=== PATIENT | male | born 1970 | race Caucasian/White ===

== ENCOUNTER → 2022-10-05 14:39 | Outpatient (BNVA) | payer OTHER, SELFPAY | PROVIDERS: Visit Provider Podiatrist Foot & Ankle Surgery | DX: M79.671 Pain in right foot (principal); M19.071 Primary osteoarthritis, right ankle and foot | CPT/HCPCS: 73600; 73630; 99203 ==

== ENCOUNTER 2022-12-02 13:00 | Outpatient (CLI) | payer OTHER, SELFPAY ==
--- NOTE | 2022-12-02 13:06 | MR_ITS ---
WS: [id number] MRI LUMBAR SPINE NONCONTRAST HISTORY: LUMBAR RADICULOPATHY COMPARISON: None available. TECHNIQUE: Sagittal and axial multisequence imaging is submitted. Normal lumbar alignment with no compression fractures or marrow edema. Mild disc space narrowing and desiccation at L5-S1. Conus terminates normally at L1. L1-L2: Normal. L2-L3: Mild annular disc bulging and mild facet arthritis. No stenosis. L3-L4: Mild annular disc bulging, mild ligamentum flavum and facet arthritis. There is mild disc encr oachment upon the traversing L4 nerve roots. Slightly greater on the RIGHT. Mild bilateral subarticul ar recess and foraminal stenosis. There is also a RIGHT foraminal disc protrusion with mild contact o n the exiting RIGHT L3 nerve root. L4-L5: Mild annular disc bulging, facet and ligamentum flavum hypertrophy. Disc contacts the subartic ular recesses and the traversing L5 nerve roots. Mild osteophytic ridging. Mild bilateral foraminal s tenosis. Moderate central and subarticular recess stenosis. L5-S1: Mild annular disc bulging with a central disc protrusion. Central protrusion contacts the S1 n erve roots, RIGHT greater than LEFT. Mild central, bilateral subarticular recess and foraminal stenos is. Retroperitoneal structures are negative. IMPRESSION: 1. L3-4: RIGHT foraminal disc protrusion with mild contact on the exiting RIGHT L3 nerve root. Annula r disc bulging is also contacting the traversing L4 nerve roots. Slightly greater on the RIGHT L4 ner ve root. 2. L4-5: Moderate central and bilateral subarticular recess stenosis and mild foraminal stenosis. The re is disc contacting the traversing L5 nerve roots. 3. L5-S1: Mild central, bilateral subarticular recess and foraminal stenosis.
== END 2022-12-02 13:01 | disposition home or self-care (01) ==
LOC: RAD 13:01
PROVIDERS: Visit Provider Nurse Practitioner
DX: M54.16 Radiculopathy, lumbar region (principal); M51.26 Other intervertebral disc displacement, lumbar region; M48.07 Spinal stenosis, lumbosacral region
CPT/HCPCS: 72148

== ENCOUNTER → 2022-12-27 10:18 | Outpatient (BNVA) | payer OTHER, SELFPAY | PROVIDERS: Visit Provider Specialist | DX: M25.512 Pain in left shoulder (principal); M25.579 Pain in unspecified ankle and joints of unspecified foot; M19.071 Primary osteoarthritis, right ankle and foot; M75.102 Unspecified rotator cuff tear or rupture of left shoulder, not specified as traumatic; M12.812 Other specific arthropathies, not elsewhere classified, left shoulder | CPT/HCPCS: 73030; 99204; 99213 ==

== ENCOUNTER 2023-01-27 09:10 | Outpatient (CLI) | payer OTHER, SELFPAY ==
--- NOTE | 2023-01-27 09:30 | MR_ITS ---
WS: [id number] MRI LEFT SHOULDER NONCONTRAST TECHNIQUE: Sagittal T2, coronal T1, T2 and proton density imaging. Axial gradient PDE imaging. CLINICAL INFORMATION: shoulder pain COMPARISON: None. FINDINGS: Moderate degenerative arthritis AC joint with edema. Moderate downsloping acromion with subacromial spurring. Impingement distal supraspinatus. Small amount of subacromial subdeltoid fluid. Tendinopath y distal supraspinatus with a small insertional tear. Chronic thinning of the supraspinatus. Tendinop athy infraspinatus which appears intact. Normal teres minor. Distal subscapularis appears intact. Biceps tendon appears intact within the bici pital groove. Normal intra-articular biceps tendon. Small subcoracoid effusion. Moderate degenerative narrowing at the glenohumeral articulation. Glenoid labrum appears grossly intact. IMPRESSION: 1. Moderate degenerative arthritis AC joint with fluid and edema. Subacromial and subdeltoid fluid. 2. Moderate downsloping of the acromion with subacromial spurring. Impingement distal supraspinatus with a distal insertional tear and tendinopathy. Chronic thinning. 3. Tendinopathy infraspinatus. 4. Somewhat diminutive biceps tendon intact within the bicipital groove. Intra-articular biceps tend on appears intact. 5. No other acute findings.
== END 2023-01-27 09:11 | disposition home or self-care (01) ==
LOC: RAD 09:10
PROVIDERS: Visit Provider Specialist
DX: M19.012 Primary osteoarthritis, left shoulder (principal); M75.102 Unspecified rotator cuff tear or rupture of left shoulder, not specified as traumatic; M75.82 Other shoulder lesions, left shoulder; M75.42 Impingement syndrome of left shoulder
CPT/HCPCS: 73221

== ENCOUNTER → 2023-02-21 09:22 | Outpatient (BNVA) | payer OTHER, SELFPAY | PROVIDERS: PCP Nurse Practitioner; Visit Provider Specialist | DX: M70.61 Trochanteric bursitis, right hip | CPT/HCPCS: 73502; 99214 ==

== ENCOUNTER → 2023-02-23 10:39 | Outpatient (BNVA) | payer OTHER, SELFPAY | PROVIDERS: PCP Nurse Practitioner; Visit Provider Specialist | DX: M75.102 Unspecified rotator cuff tear or rupture of left shoulder, not specified as traumatic (principal); M12.812 Other specific arthropathies, not elsewhere classified, left shoulder | CPT/HCPCS: 20610; 99214; J1100; J2795; J3301 ==

== ENCOUNTER → 2023-07-01 08:52 | Outpatient (BNVA) | payer OTHER, SELFPAY | PROVIDERS: PCP Nurse Practitioner; Visit Provider Specialist | DX: M75.102 Unspecified rotator cuff tear or rupture of left shoulder, not specified as traumatic (principal); M12.812 Other specific arthropathies, not elsewhere classified, left shoulder; Z71.89 Other specified counseling | CPT/HCPCS: 20610; J1100; J2795; J3301 ==

== ENCOUNTER → 2023-10-07 08:00 | Outpatient (BNVA) | payer OTHER, SELFPAY | PROVIDERS: PCP Nurse Practitioner; Visit Provider Specialist | DX: M75.102 Unspecified rotator cuff tear or rupture of left shoulder, not specified as traumatic (principal); M12.812 Other specific arthropathies, not elsewhere classified, left shoulder; Z71.89 Other specified counseling | CPT/HCPCS: 20610; J1100; J2795; J3301 ==

== ENCOUNTER → 2024-01-20 08:14 | Outpatient (BNVA) | payer OTHER, SELFPAY | PROVIDERS: PCP Nurse Practitioner; Visit Provider Specialist | DX: M75.102 Unspecified rotator cuff tear or rupture of left shoulder, not specified as traumatic (principal); M12.812 Other specific arthropathies, not elsewhere classified, left shoulder; Z71.89 Other specified counseling | CPT/HCPCS: 20610; J1100; J2795; J3301 ==

== ENCOUNTER → 2024-05-09 08:19 | Outpatient (BNVA) | payer OTHER, SELFPAY | PROVIDERS: PCP Nurse Practitioner; Visit Provider Specialist | DX: M75.102 Unspecified rotator cuff tear or rupture of left shoulder, not specified as traumatic (principal); M12.812 Other specific arthropathies, not elsewhere classified, left shoulder | CPT/HCPCS: 20610; J1100; J2795; J3301; J9999 ==

== ENCOUNTER → 2024-08-10 08:58 | Outpatient (BNVA) | payer OTHER, SELFPAY | PROVIDERS: PCP Nurse Practitioner; Visit Provider Specialist | DX: M75.102 Unspecified rotator cuff tear or rupture of left shoulder, not specified as traumatic (principal); M12.812 Other specific arthropathies, not elsewhere classified, left shoulder | CPT/HCPCS: 20610; J1100; J2795; J3301; J9999 ==

== ENCOUNTER → 2024-08-20 11:02 | Outpatient (BNVA) | payer OTHER, SELFPAY | PROVIDERS: PCP Nurse Practitioner; Visit Provider Specialist | DX: M75.102 Unspecified rotator cuff tear or rupture of left shoulder, not specified as traumatic (principal); M12.812 Other specific arthropathies, not elsewhere classified, left shoulder | CPT/HCPCS: 73030; 99214 ==

== ENCOUNTER → 2024-11-14 13:47 | Outpatient (BNVA) | payer OTHER, SELFPAY | PROVIDERS: PCP Nurse Practitioner; Visit Provider Specialist | DX: M75.102 Unspecified rotator cuff tear or rupture of left shoulder, not specified as traumatic (principal); M12.812 Other specific arthropathies, not elsewhere classified, left shoulder | CPT/HCPCS: 20610; J1100; J2795; J3301; J9999 ==